=== PATIENT | female | born 1960 | race Caucasian/White ===

== ENCOUNTER 2017-07-27 15:23 | Emergency (ER) | payer BC, SELFPAY ==
[2017-07-27 15:24] VITALS: BP 143/86; PULSE 80; RESP 16; TEMP 36.7; O2SAT 99; BMI 32.8
--- NOTE | 2017-07-27 15:47 | ED.VISSUMM ---
- ER Visit Summary Date of Service: 07/27/17 Chief Complaint: Nausea, vomiting and abdominal cramping History of Present Illness: The patient is a 57 F past medical history of reflux, diverticulosis, asthma and high cholesterol. Has had a prior total hysterectomy. Patient is in town for her son's graduation from the college. She states since Sunday night she has had nausea and vomiting. Mild intermittent abdominal cramping and loose diarrhea is resolved. Says she felt better Sunday and and return today. Her and her son are taken a trip to [facility] for 1 month after his graduation and she went to be evaluated. She denies fever. She denies melena or hematemesis. She has never had gallbladder issues. She denies any dysuria Physical Examination: Vital signs stable afebrile. No acute distress. H EENT exam unremarkable. Moist wheeze members. Neck nontender no lymphadenopathy. Lungs clear to auscultation bilaterally. Heart regular rate and rhythm no murmur. Abdomen is soft and nontender currently normal bowel sounds no peritoneal signs. No hernias or masses. Specifically right upper and right lower quadrants are unremarkable. No signs of obstruction. Normal bowel sounds. Moving all 4 extremities. Back is nontender. Neurologic exam normal. Test Results: White count 15.5 H&H 15 and 47. No bands electrolytes normal. Gap of 8. Normal creatinine. Her enzymes normal lipase normal at 229. CT abdomen pelvis with IV contrast only shows a small bowel enteritis. Diverticulosis but not colitis. And a prior hysterectomy. Otherwise no acute abnormality. No perforation no bowel obstruction this is read by the radiologist and reviewed by me. Emergency Department Course and Treatment: Treated with IV fluids and IV Zofran. Currently she is not having pain. Treatment Plan: Multiple repeat exams patient had a lot of nausea was given a second dose of Zofran and Phenergan. She was given Toradol for pain. She is feeling much better at 2125 and will be discharged home. Her abdomen is benign the entire time. Disposition: Discharge Impression: Acute nausea and vomiting. Intermittent crampy abdominal pain enteritis on CAT scan most likely viral etiology This note was generated with [employer] dictation software. It may contain incorrect words, spelling, and punctuation that were not noted in review of the chart prior to signing ED Disposition - Plan for ED Patient: Chief Complaint: Abd Pain Referrals: [facility] Doctor,Out of [Primary Care Provider] -
--- NOTE | 2017-07-27 15:51 | ED.DCSUM_ITS ---
- ER Visit Summary Date of Service: 07/27/17 Chief Complaint: Nausea, vomiting and abdominal cramping History of Present Illness: The patient is a 57 F past medical history of reflux , diverticulosis, asthma and high cholesterol. Has had a prior total hysterectomy. Patient is in town for her son's graduation from the college. She states since Sunday night she has had nausea and vomiting. Mild intermittent abdominal cramping and loose diarrhea is resolved. Says she felt better Sunday and and return today. Her and her son are taken a trip to [facility] for 1 month after his graduation and she went to be evaluated. She denies fever. She denies melena or hematemesis. She has never had gallbladder issues. She denies any dysuria Physical Examination: Vital signs stable afebrile. No acute distress. H EENT exam unremarkable. Moist wheeze members. Neck nontender no lymphadenopathy. Lungs clear to auscultation bilaterally. Heart regular rate and rhythm no murmur. Abdomen is soft and nontender currently normal bowel sounds no peritoneal signs. No hernias or masses. Specifically right upper and right lower quadrants are unremarkable. No signs of obstruction. Normal bowel sounds. Moving all 4 extremities. Back is nontender. Neurologic exam normal. Test Results: White count 15.5 H&H 15 and 47. No bands electrolytes normal. Gap of 8. Normal creatinine. Her enzymes normal lipase normal at 229. CT abdomen pelvis with IV contrast only shows a small bowel enteritis. Diverticulosis but not colitis. And a prior hysterectomy. Otherwise no acute abnormality. No perforation no bowel obstruction this is read by the radiologist and reviewed by me. Emergency Department Course and Treatment: Treated with IV fluids and IV Zofran. Currently she is not having pain. Treatment Plan: Multiple repeat exams patient had a lot of nausea was given a second dose of Zofran and Phenergan. She was given Toradol for pain. She is feeling much better at 2125 and will be discharged home. Her abdomen is benign the entire time. Disposition: Discharge Impression: Acute nausea and vomiting. Intermittent crampy abdominal pain enteritis on CAT scan most likely viral etiology This note was generated with [employer] dictation software. It may contain incorrect words, spelling, and punctuation that were not noted in review of the chart prior to signing ED Disposition - Plan for ED Patient: Chief Complaint: Abd Pain Referrals: [facility] Doctor,Out of [Primary Care Provider] -
[2017-07-27] MEDS: Ondansetron 4 MG/2 ML Vial IV ×2 (15:53→17:29)
[2017-07-27] MEDS: 0.9% Normal Saline 1,000 ML 1000 ML IV (15:53)
[2017-07-27 15:59] LABS: Absolute Lymphocyte Count 2.82 X10^3/ul (0.83-4.51); Absolute Neutrophil Count 9.8 X10^3/uL (2.0-7.7); Basophil# 0.03 X10^3/uL; Basophil% 0.2 % (0-1); Eosinophil# 1.89 X10^3/uL; Eosinophils% 12.2 % (0-5); Hematocrit 44.7 % (37-47); Lymphocyte # 2.82 X10^3/ul (4.0); Lymphocyte % 18.1 % (19-41); Mean Corp Hgb Conc 33.6 g/gl (32-36); Mean Corpuscular Hgb 30.7 pg (27.0-32.0); Mean Corpuscular Volume 91.4 fL (81-99); Mean Platelet Vol. 9.2 fl (6.2-12.0); Monocyte# 0.95 X10^3/uL; Monocyte% 6.1 % (0-10); Neutrophil # 9.82 X10^3/uL (2.7-7.7); Neutrophil % 63.2 % (47-70); Platelet Count 429 K/mm3 (150-450); RBC Distribution Width CV 12.4 % (11.6-14.6); RBC Distribution Width SD 41.2 fl (35.1-43.9); Red Blood Count 4.89 M/mm3 (4.2-5.4); White Blood Count 15.5 K/mm3 (4.4-11.0)
[2017-07-27 16:02] LABS: POSITIVE COUNT NO; POSITIVE DIFFERENTIAL NO; POSITIVE MORPHOLOGY NO
[2017-07-27 16:15] LABS: AST(SGOT) 18 U/L (15-37); Alanine Aminotransfer ALT/SGPT 32 U/L (13-56); Albumin, Serum 3.8 g/dL (3.2-5.0); Alkaline Phosphatase 88 U/L (45-117); Anion Gap 8 (5-15); BUN 20 mg/dL (7-18); Bilirubin, Direct 0.11 mg/dL (0.00-0.30); Calcium,Total 8.8 mg/dL (8.5-10.1); Chloride 102 mmol/L (98-107); Creatinine, Serum 0.87 mg/dL (0.55-1.02); EST Glomerular Filtration Rate 72 mL/min (>60); Est Glom Filt Rate - Afr Amer 87 mL/min (>60); Estimated Creatinine Clearance 66.79 ml/min; Globulin 3.8 g/dL (2.2-4.2); Glucose 96 mg/dL (74-106); Lipase 229 U/L (73-393); Potassium 3.8 mmol/L (3.5-5.1); Protein, Total 7.6 g/dL (6.4-8.2); Sodium Level 136 mmol/L (136-145)
--- NOTE | 2017-07-27 16:58 | CT_ITS ---
STUDY: CT ABDOMEN AND PELVIS WITH CONTRAST - VENOGRAM REASON FOR EXAM: Female, 57 years old. ABD PAIN, N/V X 7 DAYS, ELEV WBC, HX-DIVERTICULOSIS RADIATION DOSAGE (If Supplied By Facility): CTDIvol = ( 16.98 ) mGy, DLP = ( 1216.41 ) mGycm TECHNIQUE: Transaxial images were obtained from the dome of the diaphragm to the symphysis pubis without oral contrast. 100ML ml of Isovue 300 contrast was administered. Multiplanar coronal and sagittal images were reformatted. CT venogram protocol utilized, with delayed images performed during venous phase. Individualized Dose Optimization Techniques Were Used For This CT. COMPARISON: None. FINDINGS: The visualized lung bases are unremarkable. The visualized portions of the heart are within normal limits. There is hepatomegaly with diffuse hepatic enlargement. Normal gallbladder and extrahepatic biliary system. Normal spleen. Normal pancreas. Normal bilateral adrenal glands. Normal right kidney. Normal left kidney. Normal visualized stomach. There are prominent bowel wall of the small intestine. There are multiple colonic diverticula consistent with diverticulosis. The appendix is visualized and appears normal. Normal abdominal aorta. No retroperitoneal adenopathy. Normal urinary bladder. There is absence of the uterus consistent with a prior hysterectomy. There is a small umbilical hernia containing fat. There is endplate spondylosis of the vertebral body. CT/Abdomen/Pelvis W IV Cont ONLY IMPRESSION: There is a small umbilical hernia containing fat. Prominent small bowel may suggest mild enteritis. Hysterectomy. There are multiple diverticuli of the colon. There is diverticulosis but no radiographic signs for diverticulitis. Hepatomegaly. Electronically Signed: Brandon Mondragon MD at 17:40 EDT , Service support ,
[2017-07-27] MEDS: proMETHazine 25 MG/ML Syringe 12.5 MG IV (17:58)
[2017-07-27 18:02] VITALS: BP 151/106; PULSE 98; RESP 20; O2SAT 98
[2017-07-27] MEDS: Ketorolac 30 MG/ML Syringe IV (18:14)
[2017-07-27 19:27] LABS: Bacteria 0 SEEN /hpf (None Seen); Mucous, Urine 0 SEEN /hpf (<or=2+); Red Blood Cells-Urine 0 SEEN /hpf (0-5); White Blood Cells 0 SEEN /hpf (0-5)
[2017-07-27 19:46] LABS: Color, Urine Yellow (Yellow); Glucose, Dipstick NEGATIVE (Normal); Ketone-Dipstick 50 mg/dl (Negative); Leukocyte Esterase-Dipstick Negative /ul (Negative); Nitrite-Dipstick Negative (Negative); Occult Blood-Urine Negative /ul (Negative); Protein-Dipstick Negative (Negative); Urine Bilirubin Dipstick Negative (Negative); Urine Clarity Sl Cldy (Clear); Urine Urobilinogen Normal (Normal)
[2017-07-27 19:51] LABS: Squamous Epithelial Cells - UA 0-5 SEEN /hpf (5-10)
--- NOTE | 2017-07-27 21:29 | ED.DEP ---
ED Disposition - Plan for ED Patient: Disposition: Home or Assisted Living Chief Complaint: Abd Pain Instructions: ED Abdominal Pain Unkn Cause Prescriptions: proMETHazine tablet [Phenergan tablet] 25 mg PO Q4H PRN PRN #10 tab PRN Reason: Nausea Ondansetron [Zofran Odt] 8 mg PO Q8H PRN PRN #14 tab.rapdis PRN Reason: Nausea Referrals: [facility] Doctor,Out of [Primary Care Provider] - As soon as possible Additional Instructions: Fluids and rest. [place] diet and increase slowly as tolerated. Zofran as needed for nausea. Follow-up with primary care physician when he returned home. There was some inflammation in the small bowel seen on CAT scan which is most likely secondary to a viral syndrome causing you the nausea, vomiting and loose stools.
[2017-07-27] MEDS: Ondansetron ODT 4 MG Tablet PO (21:43)
[2017-07-27 21:46] VITALS: BP 136/93; PULSE 87; RESP 14
== END 2017-07-27 21:48 | disposition home or self-care (01) ==
PROVIDERS: Emergency Provider Emergency Medicine
DX: K52.9 Noninfective gastroenteritis and colitis, unspecified (principal); R11.2 Nausea with vomiting, unspecified; R10.9 Unspecified abdominal pain; D72.829 Elevated white blood cell count, unspecified; K57.90 Diverticulosis of intestine, part unspecified, without perforation or abscess without bleeding; K21.9 Gastro-esophageal reflux disease without esophagitis; J45.909 Unspecified asthma, uncomplicated; E78.00 Pure hypercholesterolemia, unspecified; Z79.82 Long term (current) use of aspirin; Z79.51 Long term (current) use of inhaled steroids; Z79.899 Other long term (current) drug therapy
CPT/HCPCS: 74177; 80048; 80076; 81001; 83690; 85025; 96361; 96374; 96375; 96376; 99283; J7030; Q9967; A4216; J2405